=== PATIENT | female | born 1970 | race Hispanic/Latino ===

== ENCOUNTER 2017-02-25 06:53 | Day surgery (SDC) | payer MEDICARE ==
[2017-02-25] MEDS ORDERED: NACL 0.9% 500 ML 500 ML IV SCH (08:00)
[2017-02-25] MEDS ORDERED: ECOTRIN PO ONE (08:07)
[2017-02-25] MEDS ORDERED: HEPARIN/NS 5000 UNIT/500ML(CATH LAB) 1,000 ML IR ONE (08:38)
[2017-02-25] MEDS: VERSED ONE ×2 (08:51→08:58)
[2017-02-25] MEDS: SUBLIMAZE ONE ×2 (08:51→08:58)
[2017-02-25] MEDS: CALAN ONE ×2 (08:52→09:03)
[2017-02-25] MEDS: HEPARIN 10,000 UNITS/10 ML ONE ×2 (08:52→09:03)
[2017-02-25] MEDS: XYLOCAINE 2% INFILTRATI ONE ×2 (08:52→09:02)
--- NOTE | 2017-02-25 10:11 | Prelim Cardiac Cath Report ---
Preliminary Cath Report - Hemodynamic Findings Aorta(AO): 1234/66 Left Ventricular(LV): 125/15 End Diastolic Pressure(EDP): 15 - Other Findings Estimated blood loss: minimal Dominance: right Estimated Ejection Fraction: 55 LV Contractility: normal,normal sized LV,no significant MR noted. Coronary Anatomy: Cardiac Catheterization and coronary angiography : Patient with atypical chest pains and very mildly abnormal MPI with strong family history is scheduled for cardiac catheterization and coronary angiography.They are aware of procedure,potentilal complications and alternatives of therapy available. Procedure details:Patient was brought to catheterization laboratory in fasting condition and right wrist area is thoroughly cleansed with betadine solution and sterile drapes were applied.Local anesthesia was given using 2% Xylocaile.Right radial artery puncture was made using 21 guage needle,5 F sheath was introduced,using 5 F MP catheter,angiograms of right coronary artery, followed by angiograms of left coronary artery in multiple views and using power injector,LV was performed in PEREZ projection,24 cc of dye at 8 cc/sec.At end of procedure,M catheter was removed,good hemostasis was achieved with pressure bandage. Patient tolerated procedure well.No untoward complications noted. LV gram:done in PEREZ projection with power injector:nrmal LV size and systolic function,EF 50-55%.No significant MR noted. Right Coronary Artery:Dominant vessel,angiographically smooth and normal. Left Coronary Artery:LM smooth and normal.LAD and its branches ,circumflex artery and its branches are angiographically smooth and normal. Impression:normal lef ventricular systolic function with normal coronary anatomy angiographically. Etiology of her chest pain not clear.Continue risk factor modification. Discussed with patient and .They understand. Post Diagnosis: Normal LV with normal coronary anatomy,continue risk factor modification.Chest pain are atypical,most likely non ischemic. Recommendations: risk factor modification
[2017-02-25 11:45] VITALS: BP 100/56
--- NOTE | 2017-02-25 16:13 | Short Stay Summary ---
Short Stay Documentation Date of service: 02/25/17 - History H&P: obtained from office - Allergies and Medications Current Medications: Allergies No Known Allergies Allergy (Verified 02/25/17 07:37) Home Medications Medication Instructions Recorded Confirmed Last Taken Type Aspirin EC [Aspirin Enteric Coated 81 mg PO DAILY 02/25/17 02/25/17 02/23/17 History TAB] 81mg Benztropine [Cogentin] 1 tab PO HS 02/25/17 02/25/17 02/24/17 History 1 tab Fluticasone Furoate [Arnuity 1 puff INHALATION DAILY 02/25/17 02/25/17 02/25/17 07:54 History Ellipta ORAL INH] 1 puff Lurasidone HCl [Latuda] 40 mg PO HS 02/25/17 02/25/17 02/24/17 History 40mg Percocet 10/325 mg 1 tab PO TID 02/25/17 02/25/17 02/24/17 History 1 tab Tiotropium [Spiriva] 18 mcg IH QDAY 02/25/17 02/25/17 02/25/17 07:54 History 1 cap busPIRone [Buspar] 10 mg PO TID 02/25/17 02/25/17 02/24/17 History 10mg traZODone 300 mg PO HS 02/25/17 02/25/17 02/24/17 History 300mg - Brief post op/procedure progress note Date of procedure: 02/25/17 Pre-op diagnosis: abnormal stress test Post-op diagnosis: same Procedure: LHC - see cath report Anesthesia: local Estimated blood loss: none Pathology: none Condition: stable - Disposition Condition at discharge: Good Disposition: DC-01 TO HOME OR SELFCARE - Discharge Diagnoses (1) Abnormal stress test Status: Chronic (2) Atypical chest pain Status: Chronic Short Stay Discharge Plan Activity: no restrictions Diet: low fat, low cholesterol, low salt Wound: open to air, keep clean and dry Forms: CardCath PCI D/C Instructions
== END 2017-02-25 11:45 | disposition home or self-care (01) ==
LOC: OPU 06:53
PROVIDERS: ATTEND Internal Medicine
DX: R94.39 Abnormal result of other cardiovascular function study (principal); R07.89 Other chest pain; J44.9 Chronic obstructive pulmonary disease, unspecified; F32.9 Major depressive disorder, single episode, unspecified; I10 Essential (primary) hypertension; E78.5 Hyperlipidemia, unspecified; M16.0 Bilateral primary osteoarthritis of hip; F17.210 Nicotine dependence, cigarettes, uncomplicated; Z96.643 Presence of artificial hip joint, bilateral; Z79.82 Long term (current) use of aspirin; Z79.899 Other long term (current) drug therapy; Z90.49 Acquired absence of other specified parts of digestive tract; Z98.890 Other specified postprocedural states; Z82.61 Family history of arthritis; Z80.1 Family history of malignant neoplasm of trachea, bronchus and lung
CPT/HCPCS: 93005; 93010; 93458; C1894; J1644; J2250; J3010; J7040; Q9967